=== PATIENT | male | born 1955 | race Caucasian/White ===

== ENCOUNTER 2023-05-17 01:10 | Outpatient (CLI) | payer MEDICARE, SELFPAY ==
[2023-05-17 08:18] LABS: Abs Immature Grans 0.09 10^3/uL (0.0-0.06); Absolute Basophil Count 0.09 10^3/uL (0.0-0.2); Absolute Neutrophil Count 12.16 10^3/uL (1.2-6.7); Basophils % 0.6; Eosinophils % 1.3; HCT 36.7 % (40.0-50.0); HGB 11.7 g/dL (13.5-17.5); Immature Grans % 0.6; Lymphocytes % 12.5; MCH 29.1 pg (27.0-33.0); MCHC 31.9 % (32.0-36.0); MCV 91 fL (80-95); MPV 9.2 fL (8.0-11.0); Monocytes % 7.2; Neutrophils % 77.8; Platelet Count 408 10^3/uL (130-400); RBC 4.02 10^6/uL (4.36-5.78); RDW 12.8 % (11.8-14.1); RDW-SD 42.5 fL; WBC 15.63 10^3/uL (4.4-10.8)
[2023-05-17 08:20] LABS: Absolute Lymphocyte Count 1.95 10^3/uL (1.2-3.4); Absolute Monocyte Count 1.13 10^3/uL (0.1-0.8)
[2023-05-17 08:44] LABS: ALT 21 U/L (16-63); AST 14 U/L (15-37); Alkaline Phosphatase 74 U/L (46-116); Anion Gap 8.7 mmol/L (3-11); BUN 15 mg/dL (7-18); Bilirubin, Total 0.2 mg/dL (0.2-1.0); CO2 28.3 mmol/L (21.0-32.0); CREATININE 1.1 mg/dL (0.70-1.30); Calcium 9.2 mg/dL (8.5-10.1); Chloride 98 mmol/L (98-107); Estimated GFR 73.58 (mL/min/1.73m2); Glucose 173 mg/dL (74-106); Potassium 3.7 mmol/L (3.5-5.1); Sodium 135 mmol/L (136-145); TSH 4.55 uIU/mL (0.36-3.74); Total Protein 8.4 g/dL (6.4-8.2)
[2023-05-17 08:51] LABS: Albumin 3.3 g/dL (3.4-5.0); Magnesium 2.1 mg/dL (1.8-2.4)
== END 2023-05-17 01:11 | disposition home or self-care (01) ==
PROVIDERS: Visit Provider Internal Medicine Medical Oncology
DX: C34.11 Malignant neoplasm of upper lobe, right bronchus or lung (principal); C78.02 Secondary malignant neoplasm of left lung; Z79.899 Other long term (current) drug therapy
CPT/HCPCS: 36415; 80053; 83735; 84439; 84443; 85025

== ENCOUNTER 2023-06-07 03:19 | Outpatient (CLI) | payer MEDICARE, SELFPAY ==
[2023-06-07 09:27] LABS: Abs Immature Grans 0.06 10^3/uL (0.0-0.06); Absolute Basophil Count 0.09 10^3/uL (0.0-0.2); Absolute Eosinophil Count 0.29 10^3/uL (0.0-0.7); Absolute Lymphocyte Count 2.56 10^3/uL (1.2-3.4); Absolute Monocyte Count 1.02 10^3/uL (0.1-0.8); Absolute Neutrophil Count 4.99 10^3/uL (1.2-6.7); Eosinophils % 3.2; HCT 40.5 % (40.0-50.0); Immature Grans % 0.7; Lymphocytes % 28.4; MCH 29.5 pg (27.0-33.0); MCHC 32.1 % (32.0-36.0); MCV 92 fL (80-95); MPV 8.8 fL (8.0-11.0); Monocytes % 11.3; Neutrophils % 55.4; Nucleated RBC 0.2 % (0.0-0.3); Platelet Count 291 10^3/uL (130-400); RDW 14.4 % (11.8-14.1); RDW-SD 46.7 fL; WBC 9.01 10^3/uL (4.4-10.8)
[2023-06-07 09:50] LABS: ALT 59 U/L (16-63); AST 27 U/L (15-37); Albumin 3.5 g/dL (3.4-5.0); Alkaline Phosphatase 72 U/L (46-116); Anion Gap 8.4 mmol/L (3-11); BUN 18 mg/dL (7-18); Bilirubin, Total 0.2 mg/dL (0.2-1.0); CO2 31.6 mmol/L (21.0-32.0); Calcium 9.3 mg/dL (8.5-10.1); Chloride 101 mmol/L (98-107); Estimated GFR 82.49 (mL/min/1.73m2); FREE T4 0.84 ng/dL (0.76-1.46); Glucose 92 mg/dL (74-106); Magnesium 2.1 mg/dL (1.8-2.4); Potassium 3.7 mmol/L (3.5-5.1); Sodium 141 mmol/L (136-145); TSH 3.98 uIU/mL (0.36-3.74); Total Protein 8.2 g/dL (6.4-8.2)
== END 2023-06-07 03:20 | disposition home or self-care (01) ==
LOC: LBO 03:20
PROVIDERS: Visit Provider Internal Medicine Medical Oncology
DX: Z79.899 Other long term (current) drug therapy (principal); C34.11 Malignant neoplasm of upper lobe, right bronchus or lung
CPT/HCPCS: 36415; 80053; 83735; 84439; 84443; 85025

== ENCOUNTER 2023-06-28 02:51 | Outpatient (CLI) | payer MEDICARE, SELFPAY ==
[2023-06-28 09:05] LABS: Abs Immature Grans 0.06 10^3/uL (0.0-0.06); Absolute Basophil Count 0.06 10^3/uL (0.0-0.2); Absolute Eosinophil Count 0.26 10^3/uL (0.0-0.7); Absolute Lymphocyte Count 2.43 10^3/uL (1.2-3.4); Absolute Monocyte Count 1.11 10^3/uL (0.1-0.8); Absolute Neutrophil Count 3.64 10^3/uL (1.2-6.7); Basophils % 0.8; Eosinophils % 3.4; HCT 37.6 % (40.0-50.0); HGB 12.3 g/dL (13.5-17.5); Immature Grans % 0.8; Lymphocytes % 32.1; MCH 30.3 pg (27.0-33.0); MCHC 32.7 % (32.0-36.0); MCV 93 fL (80-95); Monocytes % 14.7; Neutrophils % 48.2; Nucleated RBC 0.3 % (0.0-0.3); Platelet Count 242 10^3/uL (130-400); RBC 4.06 10^6/uL (4.36-5.78); RDW 16.4 % (11.8-14.1); RDW-SD 49.8 fL; WBC 7.56 10^3/uL (4.4-10.8)
[2023-06-28 09:36] LABS: ALT 45 U/L (16-63); AST 21 U/L (15-37); Albumin 3.5 g/dL (3.4-5.0); Alkaline Phosphatase 62 U/L (46-116); BUN 25 mg/dL (7-18); Bilirubin, Total 0.3 mg/dL (0.2-1.0); CREATININE 1.1 mg/dL (0.70-1.30); Calcium 8.9 mg/dL (8.5-10.1); Chloride 105 mmol/L (98-107); Estimated GFR 73.58 (mL/min/1.73m2); Glucose 117 mg/dL (74-106); Magnesium 2.1 mg/dL (1.8-2.4); Potassium 4.3 mmol/L (3.5-5.1); Sodium 143 mmol/L (136-145); TSH 3.62 uIU/mL (0.36-3.74); Total Protein 7.6 g/dL (6.4-8.2)
== END 2023-06-28 02:52 | disposition home or self-care (01) ==
LOC: LBO 02:52
PROVIDERS: Visit Provider Internal Medicine Medical Oncology
DX: Z79.899 Other long term (current) drug therapy (principal); C34.11 Malignant neoplasm of upper lobe, right bronchus or lung
CPT/HCPCS: 36415; 80053; 83735; 84439; 84443; 85025

== ENCOUNTER 2023-07-19 04:18 | Outpatient (CLI) | payer MEDICARE, SELFPAY ==
[2023-07-19 11:14] LABS: Abs Immature Grans 0.05 10^3/uL (0.0-0.06); Absolute Basophil Count 0.09 10^3/uL (0.0-0.2); Absolute Eosinophil Count 0.34 10^3/uL (0.0-0.7); Absolute Lymphocyte Count 3.09 10^3/uL (1.2-3.4); Absolute Monocyte Count 0.85 10^3/uL (0.1-0.8); Absolute Neutrophil Count 5.16 10^3/uL (1.2-6.7); Basophils % 0.9; Eosinophils % 3.5; Immature Grans % 0.5; Lymphocytes % 32.3; MCH 31.3 pg (27.0-33.0); MCHC 33.3 % (32.0-36.0); MCV 94 fL (80-95); MPV 9.7 fL (8.0-11.0); Monocytes % 8.9; Neutrophils % 53.9; Platelet Count 263 10^3/uL (130-400); RBC 4.15 10^6/uL (4.36-5.78); RDW 17.5 % (11.8-14.1); RDW-SD 59.6 fL; WBC 9.58 10^3/uL (4.4-10.8)
[2023-07-19 11:37] LABS: ALT 46 U/L (16-63); AST 25 U/L (15-37); Albumin 3.8 g/dL (3.4-5.0); Alkaline Phosphatase 61 U/L (46-116); Anion Gap 5.5 mmol/L (3-11); BUN 26 mg/dL (7-18); Bilirubin, Total 0.4 mg/dL (0.2-1.0); CO2 32.5 mmol/L (21.0-32.0); CREATININE 1.2 mg/dL (0.70-1.30); Calcium 9.4 mg/dL (8.5-10.1); Chloride 103 mmol/L (98-107); Estimated GFR 66.28 (mL/min/1.73m2); Glucose 105 mg/dL (74-106); Magnesium 2.1 mg/dL (1.8-2.4); Potassium 4.2 mmol/L (3.5-5.1); Sodium 141 mmol/L (136-145); TSH 4.93 uIU/mL (0.36-3.74); Total Protein 7.8 g/dL (6.4-8.2)
== END 2023-07-19 04:19 | disposition home or self-care (01) ==
LOC: LBO 04:18
PROVIDERS: Visit Provider Internal Medicine Medical Oncology
DX: Z79.899 Other long term (current) drug therapy (principal); C34.11 Malignant neoplasm of upper lobe, right bronchus or lung
CPT/HCPCS: 36415; 80053; 83735; 84439; 84443; 85025

== ENCOUNTER 2023-08-09 03:57 | Outpatient (CLI) | payer MEDICARE, SELFPAY ==
[2023-08-09 10:15] LABS: Abs Immature Grans 0.03 10^3/uL (0.0-0.06); Absolute Basophil Count 0.08 10^3/uL (0.0-0.2); Absolute Eosinophil Count 0.36 10^3/uL (0.0-0.7); Absolute Lymphocyte Count 2.84 10^3/uL (1.2-3.4); Absolute Monocyte Count 1.02 10^3/uL (0.1-0.8); Absolute Neutrophil Count 4.83 10^3/uL (1.2-6.7); Basophils % 0.9; Eosinophils % 3.9; HCT 39.8 % (40.0-50.0); HGB 13.4 g/dL (13.5-17.5); Immature Grans % 0.3; MCH 31.8 pg (27.0-33.0); MCHC 33.7 % (32.0-36.0); MCV 94 fL (80-95); MPV 9.3 fL (8.0-11.0); Monocytes % 11.1; Neutrophils % 52.8; Platelet Count 261 10^3/uL (130-400); RBC 4.22 10^6/uL (4.36-5.78); RDW 16.7 % (11.8-14.1); RDW-SD 57.5 fL; WBC 9.16 10^3/uL (4.4-10.8)
[2023-08-09 10:39] LABS: ALT 37 U/L (16-63); AST 21 U/L (15-37); Albumin 3.9 g/dL (3.4-5.0); Alkaline Phosphatase 59 U/L (46-116); Anion Gap 8.8 mmol/L (3-11); BUN 26 mg/dL (7-18); Bilirubin, Total 0.3 mg/dL (0.2-1.0); CO2 30.2 mmol/L (21.0-32.0); Calcium 9.4 mg/dL (8.5-10.1); Chloride 101 mmol/L (98-107); Estimated GFR 82.49 (mL/min/1.73m2); FREE T4 0.81 ng/dL (0.76-1.46); Glucose 125 mg/dL (74-106); Magnesium 2.2 mg/dL (1.8-2.4); Potassium 3.9 mmol/L (3.5-5.1); Sodium 140 mmol/L (136-145); TSH 4.75 uIU/mL (0.36-3.74)
== END 2023-08-09 03:58 | disposition home or self-care (01) ==
LOC: LBO 03:57
PROVIDERS: Visit Provider Internal Medicine Medical Oncology
DX: C34.11 Malignant neoplasm of upper lobe, right bronchus or lung (principal); C78.02 Secondary malignant neoplasm of left lung; Z79.899 Other long term (current) drug therapy
CPT/HCPCS: 36415; 80053; 83735; 84439; 84443; 85025

== ENCOUNTER 2023-08-30 05:03 | Outpatient (CLI) | payer MEDICARE, SELFPAY ==
[2023-08-30 09:39] LABS: Abs Immature Grans 0.07 10^3/uL (0.0-0.06); Absolute Basophil Count 0.09 10^3/uL (0.0-0.2); Absolute Eosinophil Count 0.36 10^3/uL (0.0-0.7); Absolute Lymphocyte Count 3.14 10^3/uL (1.2-3.4); Absolute Monocyte Count 0.99 10^3/uL (0.1-0.8); Absolute Neutrophil Count 6.01 10^3/uL (1.2-6.7); Basophils % 0.8; Eosinophils % 3.4; HGB 13.5 g/dL (13.5-17.5); Immature Grans % 0.7; Lymphocytes % 29.5; MCH 31.4 pg (27.0-33.0); MCHC 32.9 % (32.0-36.0); MCV 95 fL (80-95); MPV 9.5 fL (8.0-11.0); Monocytes % 9.3; Neutrophils % 56.3; Platelet Count 250 10^3/uL (130-400); RDW 14.9 % (11.8-14.1); RDW-SD 52.8 fL; WBC 10.66 10^3/uL (4.4-10.8)
[2023-08-30 10:05] LABS: ALT 34 U/L (16-63); AST 22 U/L (15-37); Albumin 3.7 g/dL (3.4-5.0); Alkaline Phosphatase 63 U/L (46-116); Anion Gap 6.5 mmol/L (3-11); BUN 18 mg/dL (7-18); Bilirubin, Total 0.5 mg/dL (0.2-1.0); CO2 32.5 mmol/L (21.0-32.0); CREATININE 1.2 mg/dL (0.70-1.30); Calcium 9.1 mg/dL (8.5-10.1); Chloride 102 mmol/L (98-107); Estimated GFR 66.28 (mL/min/1.73m2); Glucose 101 mg/dL (74-106); Magnesium 2.2 mg/dL (1.8-2.4); Potassium 3.9 mmol/L (3.5-5.1); Sodium 141 mmol/L (136-145); TSH 5.04 uIU/mL (0.36-3.74); Total Protein 7.8 g/dL (6.4-8.2)
== END 2023-08-30 05:04 | disposition home or self-care (01) ==
LOC: LBO 05:03
PROVIDERS: Visit Provider Internal Medicine Medical Oncology
DX: Z79.899 Other long term (current) drug therapy (principal); C78.02 Secondary malignant neoplasm of left lung; C34.11 Malignant neoplasm of upper lobe, right bronchus or lung
CPT/HCPCS: 36415; 80053; 83735; 84439; 84443; 85025

== ENCOUNTER 2023-09-20 03:20 | Outpatient (CLI) | payer MEDICARE, SELFPAY ==
[2023-09-20 12:12] LABS: Abs Immature Grans 0.06 10^3/uL (0.0-0.06); Absolute Lymphocyte Count 2.81 10^3/uL (1.2-3.4); Absolute Monocyte Count 1.19 10^3/uL (0.1-0.8); Basophils % 0.9; Eosinophils % 2.7; HCT 40.6 % (40.0-50.0); HGB 13.7 g/dL (13.5-17.5); Immature Grans % 0.5; Lymphocytes % 24.1; MCH 32.2 pg (27.0-33.0); MCHC 33.7 % (32.0-36.0); MCV 96 fL (80-95); MPV 9.5 fL (8.0-11.0); Monocytes % 10.2; Neutrophils % 61.6; Platelet Count 265 10^3/uL (130-400); RBC 4.25 10^6/uL (4.36-5.78); RDW 13.5 % (11.8-14.1); WBC 11.65 10^3/uL (4.4-10.8)
[2023-09-20 12:14] LABS: Absolute Eosinophil Count 0.31 10^3/uL (0.0-0.7); Absolute Neutrophil Count 7.18 10^3/uL (1.2-6.7)
[2023-09-20 12:40] LABS: ALT 31 U/L (16-63); AST 18 U/L (15-37); Albumin 3.7 g/dL (3.4-5.0); Alkaline Phosphatase 66 U/L (46-116); Anion Gap 13.9 mmol/L (3-11); BUN 18 mg/dL (7-18); Bilirubin, Total 0.3 mg/dL (0.2-1.0); CO2 31.1 mmol/L (21.0-32.0); CREATININE 1.1 mg/dL (0.70-1.30); Calcium 9.1 mg/dL (8.5-10.1); Chloride 102 mmol/L (98-107); Estimated GFR 73.12 (mL/min/1.73m2); FREE T4 0.87 ng/dL (0.76-1.46); Glucose 103 mg/dL (74-106); Magnesium 2.2 mg/dL (1.8-2.4); Potassium 4.2 mmol/L (3.5-5.1); Sodium 147 mmol/L (136-145); TSH 4.86 uIU/Ml (0.36-3.74)
== END 2023-09-20 03:21 | disposition home or self-care (01) ==
LOC: LBO 03:20
PROVIDERS: Visit Provider Internal Medicine Medical Oncology
DX: Z79.899 Other long term (current) drug therapy (principal)
CPT/HCPCS: 36415; 80053; 83735; 84439; 84443; 85025

== ENCOUNTER 2023-10-11 05:53 | Outpatient (CLI) | payer MEDICARE, SELFPAY ==
[2023-10-11 10:02] LABS: Abs Immature Grans 0.05 10^3/uL (0.0-0.06); Absolute Eosinophil Count 0.29 10^3/uL (0.0-0.7); Absolute Lymphocyte Count 3.02 10^3/uL (1.2-3.4); Absolute Monocyte Count 0.76 10^3/uL (0.1-0.8); Absolute Neutrophil Count 6.03 10^3/uL (1.2-6.7); Eosinophils % 2.8; HCT 41.5 % (40.0-50.0); HGB 13.7 g/dL (13.5-17.5); Immature Grans % 0.5; Lymphocytes % 29.5; MCH 31.9 pg (27.0-33.0); MCV 97 fL (80-95); MPV 9.7 fL (8.0-11.0); Monocytes % 7.4; Neutrophils % 58.8; Platelet Count 266 10^3/uL (130-400); RDW 12.3 % (11.8-14.1); RDW-SD 43.9 fL; WBC 10.25 10^3/uL (4.4-10.8)
[2023-10-11 10:31] LABS: ALT 31 U/L (16-63); AST 21 U/L (15-37); Albumin 3.7 g/dL (3.4-5.0); Alkaline Phosphatase 65 U/L (46-116); BUN 22 mg/dL (7-18); Bilirubin, Total 0.4 mg/dL (0.2-1.0); CREATININE 1.1 mg/dL (0.70-1.30); Calcium 9.1 mg/dL (8.5-10.1); Chloride 103 mmol/L (98-107); Estimated GFR 73.12 (mL/min/1.73m2); FREE T4 0.87 ng/dL (0.76-1.46); Glucose 122 mg/dL (74-106); Magnesium 2.1 mg/dL (1.8-2.4); Potassium 4.3 mmol/L (3.5-5.1); Sodium 141 mmol/L (136-145); TSH 4.73 uIU/Ml (0.36-3.74); Total Protein 7.8 g/dL (6.4-8.2)
== END 2023-10-11 05:54 | disposition home or self-care (01) ==
LOC: LBO 05:54
PROVIDERS: Visit Provider Internal Medicine Medical Oncology
DX: Z79.899 Other long term (current) drug therapy (principal); C34.11 Malignant neoplasm of upper lobe, right bronchus or lung
CPT/HCPCS: 36415; 80053; 83735; 84439; 84443; 85025

== ENCOUNTER 2023-11-01 05:06 | Outpatient (CLI) | payer MEDICARE, SELFPAY ==
[2023-11-01 08:27] LABS: Abs Immature Grans 0.04 10^3/uL (0.0-0.06); Absolute Basophil Count 0.09 10^3/uL (0.0-0.2); Absolute Eosinophil Count 0.34 10^3/uL (0.0-0.7); Absolute Lymphocyte Count 2.43 10^3/uL (1.2-3.4); Absolute Monocyte Count 0.84 10^3/uL (0.1-0.8); Basophils % 0.9; Eosinophils % 3.5; HCT 40.8 % (40.0-50.0); HGB 13.5 g/dL (13.5-17.5); Immature Grans % 0.4; Lymphocytes % 25.2; MCH 31.9 pg (27.0-33.0); MCHC 33.1 % (32.0-36.0); MCV 97 fL (80-95); MPV 9.8 fL (8.0-11.0); Monocytes % 8.7; Neutrophils % 61.3; Platelet Count 275 10^3/uL (130-400); RBC 4.23 10^6/uL (4.36-5.78); RDW 12.4 % (11.8-14.1); RDW-SD 44.1 fL; WBC 9.64 10^3/uL (4.4-10.8)
[2023-11-01 08:51] LABS: ALT 30 U/L (16-63); AST 21 U/L (15-37); Albumin 3.6 g/dL (3.4-5.0); Alkaline Phosphatase 66 U/L (46-116); Anion Gap 8.5 mmol/L (3-11); BUN 27 mg/dL (7-18); Bilirubin, Total 0.3 mg/dL (0.2-1.0); CO2 29.5 mmol/L (21.0-32.0); CREATININE 1.2 mg/dL (0.70-1.30); Calcium 9.2 mg/dL (8.5-10.1); Chloride 105 mmol/L (98-107); Estimated GFR 65.87 (mL/min/1.73m2); FREE T4 0.84 ng/dL (0.76-1.46); Glucose 100 mg/dL (74-106); Magnesium 2.3 mg/dL (1.8-2.4); Potassium 4.2 mmol/L (3.5-5.1); Sodium 143 mmol/L (136-145); TSH 4.98 uIU/Ml (0.36-3.74); Total Protein 7.6 g/dL (6.4-8.2)
== END 2023-11-01 05:07 | disposition home or self-care (01) ==
LOC: LBO 05:06
PROVIDERS: Visit Provider Internal Medicine Medical Oncology
DX: Z79.899 Other long term (current) drug therapy (principal); C34.11 Malignant neoplasm of upper lobe, right bronchus or lung; C78.02 Secondary malignant neoplasm of left lung
CPT/HCPCS: 36415; 80053; 83735; 84439; 84443; 85025

== ENCOUNTER 2023-11-22 13:33 | Outpatient (CLI) | payer MEDICARE, SELFPAY ==
[2023-11-22 10:22] LABS: Abs Immature Grans 0.05 10^3/uL (0.0-0.06); Absolute Basophil Count 0.09 10^3/uL (0.0-0.2); Absolute Eosinophil Count 0.26 10^3/uL (0.0-0.7); Absolute Lymphocyte Count 2.52 10^3/uL (1.2-3.4); Absolute Monocyte Count 0.81 10^3/uL (0.1-0.8); Absolute Neutrophil Count 5.39 10^3/uL (1.2-6.7); Eosinophils % 2.9 %; HCT 42.1 % (40.0-50.0); HGB 13.9 g/dL (13.5-17.5); Immature Grans % 0.5 %; Lymphocytes % 27.6 %; MCH 31.4 pg (27.0-33.0); MCV 95 fL (80-95); MPV 9.6 fL (8.0-11.0); Monocytes % 8.9 %; Neutrophils % 59.1 %; Platelet Count 302 10^3/uL (130-400); RBC 4.42 10^6/uL (4.36-5.78); RDW 12.5 % (11.8-14.1); RDW-SD 44.1 fL; WBC 9.12 10^3/uL (4.4-10.8)
[2023-11-22 10:45] LABS: ALT 30 U/L (16-63); AST 19 U/L (15-37); Albumin 3.6 g/dL (3.4-5.0); Alkaline Phosphatase 65 U/L (46-116); Anion Gap 10.1 mmol/L (3-11); BUN 31 mg/dL (7-18); Bilirubin, Total 0.3 mg/dL (0.2-1.0); CO2 28.9 mmol/L (21.0-32.0); CREATININE 1.1 mg/dL (0.70-1.30); Calcium 9.1 mg/dL (8.5-10.1); Chloride 103 mmol/L (98-107); Estimated GFR 73.12 (mL/min/1.73m2); FREE T4 0.86 ng/dL (0.76-1.46); Glucose 108 mg/dL (74-106); Magnesium 2.2 mg/dL (1.8-2.4); Potassium 4.3 mmol/L (3.5-5.1); Sodium 142 mmol/L (136-145); TSH 4.14 uIU/Ml (0.36-3.74); Total Protein 7.7 g/dL (6.4-8.2)
== END 2023-11-22 13:34 | disposition home or self-care (01) ==
LOC: LBO 13:33
PROVIDERS: Visit Provider Internal Medicine Medical Oncology
DX: Z79.899 Other long term (current) drug therapy (principal); C34.11 Malignant neoplasm of upper lobe, right bronchus or lung
CPT/HCPCS: 36415; 80053; 83735; 84439; 84443; 85025

== ENCOUNTER 2023-12-13 04:40 | Outpatient (CLI) | payer MEDICARE, SELFPAY ==
[2023-12-13 10:08] LABS: Abs Immature Grans 0.05 10^3/uL (0.0-0.06); Absolute Basophil Count 0.09 10^3/uL (0.0-0.2); Absolute Lymphocyte Count 2.36 10^3/uL (1.2-3.4); Absolute Monocyte Count 0.87 10^3/uL (0.1-0.8); Absolute Neutrophil Count 6.37 10^3/uL (1.2-6.7); Basophils % 0.9 %; HCT 40.3 % (40.0-50.0); HGB 13.6 g/dL (13.5-17.5); Immature Grans % 0.5 %; Lymphocytes % 23.5 %; MCH 31.1 pg (27.0-33.0); MCHC 33.7 % (32.0-36.0); MCV 92 fL (80-95); MPV 9.9 fL (8.0-11.0); Monocytes % 8.7 %; Neutrophils % 63.4 %; Platelet Count 280 10^3/uL (130-400); RBC 4.38 10^6/uL (4.36-5.78); RDW 12.7 % (11.8-14.1); RDW-SD 42.8 fL; WBC 10.04 10^3/uL (4.4-10.8)
[2023-12-13 10:35] LABS: ALT 26 U/L (16-63); AST 17 U/L (15-37); Albumin 3.6 g/dL (3.4-5.0); Alkaline Phosphatase 64 U/L (46-116); BUN 24 mg/dL (7-18); Bilirubin, Total 0.3 mg/dL (0.2-1.0); Chloride 102 mmol/L (98-107); Estimated GFR 81.98 (mL/min/1.73m2); FREE T4 0.79 ng/dL (0.76-1.46); Glucose 127 mg/dL (74-106); Potassium 4.1 mmol/L (3.5-5.1); Sodium 140 mmol/L (136-145); Total Protein 7.7 g/dL (6.4-8.2)
== END 2023-12-13 04:41 | disposition home or self-care (01) ==
LOC: LBO 04:40
PROVIDERS: Visit Provider Internal Medicine Medical Oncology
DX: C34.11 Malignant neoplasm of upper lobe, right bronchus or lung (principal); C78.02 Secondary malignant neoplasm of left lung; Z79.899 Other long term (current) drug therapy
CPT/HCPCS: 36415; 80053; 83735; 84439; 84443; 85025

== ENCOUNTER 2024-01-03 15:42 | Outpatient (REF) | payer MEDICARE, SELFPAY ==
[2024-01-03 12:05] LABS: Abs Immature Grans 0.05 10^3/uL (0.0-0.06); Absolute Eosinophil Count 0.27 10^3/uL (0.0-0.7); Absolute Lymphocyte Count 2.16 10^3/uL (1.2-3.4); Absolute Monocyte Count 0.96 10^3/uL (0.1-0.8); Eosinophils % 2.7 %; HCT 40.2 % (40.0-50.0); HGB 13.4 g/dL (13.5-17.5); Immature Grans % 0.5 %; Lymphocytes % 21.3 %; MCH 31.1 pg (27.0-33.0); MCHC 33.3 % (32.0-36.0); MCV 93 fL (80-95); MPV 10.5 fL (8.0-11.0); Monocytes % 9.5 %; Platelet Count 306 10^3/uL (130-400); RBC 4.31 10^6/uL (4.36-5.78); RDW 13.2 % (11.8-14.1); RDW-SD 45.5 fL; WBC 10.14 10^3/uL (4.4-10.8)
[2024-01-03 12:36] LABS: ALT 25 U/L (16-63); AST 22 U/L (15-37); Albumin 3.6 g/dL (3.4-5.0); Alkaline Phosphatase 69 U/L (46-116); Anion Gap 7.7 mmol/L (3-11); BUN 21 mg/dL (7-18); Bilirubin, Total 0.34 mg/dL (0.2-1.0); CO2 30.3 mmol/L (21.0-32.0); CREATININE 1.1 mg/dL (0.70-1.30); Calcium 8.8 mg/dL (8.5-10.1); Chloride 104 mmol/L (98-107); Estimated GFR 73.12 (mL/min/1.73m2); FREE T4 0.89 ng/dL (0.76-1.46); Glucose 114 mg/dL (74-106); Magnesium 1.9 mg/dL (1.8-2.4); Potassium 4.3 mmol/L (3.5-5.1); Sodium 142 mmol/L (136-145); TSH 4.77 uIU/Ml (0.36-3.74); Total Protein 7.8 g/dL (6.4-8.2)
== END 2024-01-03 15:43 | disposition home or self-care (01) ==
LOC: LBN 15:42
PROVIDERS: Visit Provider Internal Medicine Medical Oncology
DX: C34.11 Malignant neoplasm of upper lobe, right bronchus or lung (principal); C78.02 Secondary malignant neoplasm of left lung; Z79.899 Other long term (current) drug therapy
CPT/HCPCS: 80053; 83735; 84439; 84443; 85025

== ENCOUNTER 2024-01-24 03:55 | Outpatient (CLI) | payer MEDICARE, SELFPAY ==
[2024-01-24 13:31] LABS: Abs Immature Grans 0.08 10^3/uL (0.0-0.06); Absolute Eosinophil Count 0.36 10^3/uL (0.0-0.7); Absolute Lymphocyte Count 2.69 10^3/uL (1.2-3.4); Basophils % 0.9 %; Eosinophils % 3.1 %; HGB 13.5 g/dL (13.5-17.5); Immature Grans % 0.7 %; Lymphocytes % 23.1 %; MCH 30.8 pg (27.0-33.0); MCHC 32.9 % (32.0-36.0); MCV 94 fL (80-95); MPV 9.7 fL (8.0-11.0); Monocytes % 5.7 %; Neutrophils % 66.5 %; Platelet Count 300 10^3/uL (130-400); RBC 4.38 10^6/uL (4.36-5.78); RDW 13.2 % (11.8-14.1); RDW-SD 45.1 fL; WBC 11.66 10^3/uL (4.4-10.8)
[2024-01-24 13:32] LABS: Absolute Monocyte Count 0.66 10^3/uL (0.1-0.8); Absolute Neutrophil Count 7.75 10^3/uL (1.2-6.7)
[2024-01-24 13:56] LABS: ALT 25 U/L (16-63); AST 16 U/L (15-37); Albumin 3.6 g/dL (3.4-5.0); Alkaline Phosphatase 69 U/L (46-116); Anion Gap 9.2 mmol/L (3-11); BUN 20 mg/dL (7-18); Bilirubin, Total 0.27 mg/dL (0.2-1.0); CO2 27.8 mmol/L (21.0-32.0); CREATININE 1.1 mg/dL (0.70-1.30); Calcium 8.9 mg/dL (8.5-10.1); Chloride 101 mmol/L (98-107); Estimated GFR 73.12 (mL/min/1.73m2); FREE T4 0.92 ng/dL (0.76-1.46); Glucose 159 mg/dL (74-106); Magnesium 1.9 mg/dL (1.8-2.4); Sodium 138 mmol/L (136-145); TSH 5.17 uIU/Ml (0.36-3.74); Total Protein 7.8 g/dL (6.4-8.2)
== END 2024-01-24 03:56 | disposition home or self-care (01) ==
PROVIDERS: Visit Provider Internal Medicine Medical Oncology
DX: Z79.899 Other long term (current) drug therapy (principal); C34.11 Malignant neoplasm of upper lobe, right bronchus or lung; C78.02 Secondary malignant neoplasm of left lung
CPT/HCPCS: 36415; 80053; 83735; 84439; 84443; 85025

== ENCOUNTER 2024-02-14 03:33 | Outpatient (CLI) | payer MEDICARE, SELFPAY ==
[2024-02-14 10:21] LABS: Abs Immature Grans 0.07 10^3/uL (0.0-0.06); Absolute Basophil Count 0.11 10^3/uL (0.0-0.2); Absolute Eosinophil Count 0.36 10^3/uL (0.0-0.7); Absolute Lymphocyte Count 2.67 10^3/uL (1.2-3.4); Absolute Monocyte Count 1.13 10^3/uL (0.1-0.8); Basophils % 0.9 %; HCT 41.5 % (40.0-50.0); HGB 13.6 g/dL (13.5-17.5); Immature Grans % 0.6 %; Lymphocytes % 22.4 %; MCH 31.1 pg (27.0-33.0); MCHC 32.8 % (32.0-36.0); MCV 95 fL (80-95); MPV 9.4 fL (8.0-11.0); Monocytes % 9.5 %; Neutrophils % 63.6 %; Platelet Count 287 10^3/uL (130-400); RBC 4.38 10^6/uL (4.36-5.78); RDW 13.3 % (11.8-14.1); RDW-SD 46.4 fL; WBC 11.94 10^3/uL (4.4-10.8)
[2024-02-14 10:22] LABS: Absolute Neutrophil Count 7.59 10^3/uL (1.2-6.7)
[2024-02-14 10:47] LABS: ALT 24 U/L (16-63); AST 16 U/L (15-37); Albumin 3.6 g/dL (3.4-5.0); Alkaline Phosphatase 68 U/L (46-116); Anion Gap 6.8 mmol/L (3-11); BUN 23 mg/dL (7-18); Bilirubin, Total 0.19 mg/dL (0.2-1.0); CO2 31.2 mmol/L (21.0-32.0); CREATININE 1.2 mg/dL (0.70-1.30); Calcium 9.3 mg/dL (8.5-10.1); Chloride 103 mmol/L (98-107); Estimated GFR 65.87 (mL/min/1.73m2); FREE T4 0.85 ng/dL (0.76-1.46); Glucose 105 mg/dL (74-106); Magnesium 2.1 mg/dL (1.8-2.4); Potassium 4.4 mmol/L (3.5-5.1); Sodium 141 mmol/L (136-145); TSH 4.91 uIU/Ml (0.36-3.74); Total Protein 7.8 g/dL (6.4-8.2)
== END 2024-02-14 03:34 | disposition home or self-care (01) ==
LOC: LBO 03:33
PROVIDERS: Visit Provider Internal Medicine Medical Oncology
DX: Z79.899 Other long term (current) drug therapy (principal); C34.11 Malignant neoplasm of upper lobe, right bronchus or lung
CPT/HCPCS: 36415; 80053; 83735; 84439; 84443; 85025

== ENCOUNTER 2024-03-06 03:06 | Outpatient (CLI) | payer MEDICARE, SELFPAY ==
[2024-03-06 12:55] LABS: Abs Immature Grans 0.08 10^3/uL (0.0-0.06); Absolute Basophil Count 0.09 10^3/uL (0.0-0.2); Absolute Lymphocyte Count 3.04 10^3/uL (1.2-3.4); Absolute Monocyte Count 1.08 10^3/uL (0.1-0.8); Absolute Neutrophil Count 8.51 10^3/uL (1.2-6.7); Basophils % 0.7 %; HCT 40.7 % (40.0-50.0); HGB 13.7 g/dL (13.5-17.5); Immature Grans % 0.6 %; MCH 31.1 pg (27.0-33.0); MCHC 33.7 % (32.0-36.0); MCV 93 fL (80-95); MPV 9.7 fL (8.0-11.0); Monocytes % 8.2 %; Neutrophils % 64.5 %; Platelet Count 316 10^3/uL (130-400); RDW 13.2 % (11.8-14.1)
[2024-03-06 13:23] LABS: ALT 22 U/L (16-63); AST 18 U/L (15-37); Albumin 3.7 g/dL (3.4-5.0); Alkaline Phosphatase 72 U/L (46-116); Anion Gap 7.9 mmol/L (3-11); BUN 23 mg/dL (7-18); Bilirubin, Total 0.21 mg/dL (0.2-1.0); CO2 29.1 mmol/L (21.0-32.0); Calcium 9.2 mg/dL (8.5-10.1); Chloride 101 mmol/L (98-107); Estimated GFR 81.98 (mL/min/1.73m2); FREE T4 0.87 ng/dL (0.76-1.46); Glucose 103 mg/dL (74-106); Potassium 3.9 mmol/L (3.5-5.1); Sodium 138 mmol/L (136-145); TSH 5.93 uIU/Ml (0.36-3.74); Total Protein 8.1 g/dL (6.4-8.2)
== END 2024-03-06 03:07 | disposition home or self-care (01) ==
LOC: LBO 03:06
PROVIDERS: Visit Provider Internal Medicine Medical Oncology
DX: Z79.899 Other long term (current) drug therapy (principal); C34.11 Malignant neoplasm of upper lobe, right bronchus or lung; C78.02 Secondary malignant neoplasm of left lung
CPT/HCPCS: 36415; 80053; 83735; 84439; 84443; 85025

== ENCOUNTER 2024-03-27 04:22 | Outpatient (CLI) | payer MEDICARE, SELFPAY ==
[2024-03-27 08:48] LABS: Abs Immature Grans 0.06 10^3/uL (0.0-0.06); Absolute Eosinophil Count 0.33 10^3/uL (0.0-0.7); Absolute Lymphocyte Count 2.19 10^3/uL (1.2-3.4); Absolute Monocyte Count 0.83 10^3/uL (0.1-0.8); Basophils % 0.9 %; HCT 40.2 % (40.0-50.0); HGB 13.3 g/dL (13.5-17.5); Immature Grans % 0.5 %; Lymphocytes % 19.7 %; MCH 30.8 pg (27.0-33.0); MCHC 33.1 % (32.0-36.0); MCV 93 fL (80-95); MPV 9.7 fL (8.0-11.0); Monocytes % 7.5 %; Neutrophils % 68.4 %; Platelet Count 310 10^3/uL (130-400); RBC 4.32 10^6/uL (4.36-5.78); RDW 13.3 % (11.8-14.1); RDW-SD 45.4 fL; WBC 11.11 10^3/uL (4.4-10.8)
[2024-03-27 09:10] LABS: ALT 25 U/L (16-63); AST 17 U/L (15-37); Albumin 3.4 g/dL (3.4-5.0); Alkaline Phosphatase 67 U/L (46-116); Anion Gap 5.4 mmol/L (3-11); BUN 24 mg/dL (7-18); Bilirubin, Total 0.33 mg/dL (0.2-1.0); CO2 29.6 mmol/L (21.0-32.0); CREATININE 1.1 mg/dL (0.70-1.30); Calcium 9.4 mg/dL (8.5-10.1); Chloride 102 mmol/L (98-107); Estimated GFR 73.12 (mL/min/1.73m2); FREE T4 0.95 ng/dL (0.76-1.46); Glucose 148 mg/dL (74-106); Magnesium 2.1 mg/dL (1.8-2.4); Potassium 4.1 mmol/L (3.5-5.1); Sodium 137 mmol/L (136-145); Total Protein 7.6 g/dL (6.4-8.2)
== END 2024-03-27 04:23 | disposition home or self-care (01) ==
LOC: LBO 04:22
PROVIDERS: Visit Provider Internal Medicine Medical Oncology
DX: Z79.899 Other long term (current) drug therapy (principal)
CPT/HCPCS: 36415; 80053; 83735; 84439; 84443; 85025

== ENCOUNTER 2024-04-17 02:24 | Outpatient (CLI) | payer MEDICARE, SELFPAY ==
[2024-04-17 09:40] LABS: Abs Immature Grans 0.06 10^3/uL (0.0-0.06); Absolute Basophil Count 0.11 10^3/uL (0.0-0.2); Absolute Lymphocyte Count 2.17 10^3/uL (1.2-3.4); Absolute Monocyte Count 0.69 10^3/uL (0.1-0.8); Eosinophils % 2.7 %; HCT 41.9 % (40.0-50.0); HGB 13.5 g/dL (13.5-17.5); Immature Grans % 0.5 %; Lymphocytes % 19.3 %; MCH 30.7 pg (27.0-33.0); MCHC 32.2 % (32.0-36.0); MCV 95 fL (80-95); MPV 9.7 fL (8.0-11.0); Monocytes % 6.1 %; Neutrophils % 70.4 %; Nucleated RBC 0.2 % (0.0-0.3); Platelet Count 343 10^3/uL (130-400); RDW 13.9 % (11.8-14.1); RDW-SD 48.3 fL; WBC 11.23 10^3/uL (4.4-10.8)
[2024-04-17 09:41] LABS: Absolute Neutrophil Count 7.91 10^3/uL (1.2-6.7)
[2024-04-17 10:10] LABS: ALT 24 U/L (16-63); AST 19 U/L (15-37); Albumin 3.4 g/dL (3.4-5.0); Alkaline Phosphatase 76 U/L (46-116); BUN 23 mg/dL (7-18); CO2 30.9 mmol/L (21.0-32.0); CREATININE 1.1 mg/dL (0.70-1.30); Calcium 9.2 mg/dL (8.5-10.1); Estimated GFR 73.12 (mL/min/1.73m2); FREE T4 1.03 ng/dL (0.76-1.46); Glucose 149 mg/dL (74-106); TSH 2.18 uIU/Ml (0.36-3.74); Total Protein 7.9 g/dL (6.4-8.2)
[2024-04-17 10:18] LABS: Anion Gap 9.1 mmol/L (3-11); Chloride 105 mmol/L (98-107); Potassium 3.9 mmol/L (3.5-5.1); Sodium 145 mmol/L (136-145)
== END 2024-04-17 02:25 | disposition home or self-care (01) ==
LOC: LBO 02:24
PROVIDERS: Visit Provider Internal Medicine Medical Oncology
DX: Z79.899 Other long term (current) drug therapy (principal); C34.92 Malignant neoplasm of unspecified part of left bronchus or lung; C34.11 Malignant neoplasm of upper lobe, right bronchus or lung; C78.02 Secondary malignant neoplasm of left lung
CPT/HCPCS: 36415; 80053; 83735; 84439; 84443; 85025

== ENCOUNTER 2024-05-08 02:05 | Outpatient (CLI) | payer MEDICARE, SELFPAY ==
[2024-05-08 12:54] LABS: FREE T4 0.99 ng/dL (0.76-1.46); TSH 3.35 uIU/mL (0.36-3.74)
[2024-05-08 13:56] LABS: ALT 21 U/L (16-63); AST 19 U/L (15-37); Albumin 3.4 g/dL (3.4-5.0); Alkaline Phosphatase 76 U/L (46-116); Anion Gap 9.9 mmol/L (3-11); BUN 18 mg/dL (7-18); Bilirubin, Total 0.25 mg/dL (0.2-1.0); CO2 29.1 mmol/L (21.0-32.0); CREATININE 1.2 mg/dL (0.70-1.30); Calcium 9.2 mg/dL (8.5-10.1); Chloride 106 mmol/L (98-107); Estimated GFR 65.87 (mL/min/1.73m2); Glucose 108 mg/dL (74-106); Magnesium 2.3 mg/dL (1.8-2.4); Potassium 4.2 mmol/L (3.5-5.1); Sodium 145 mmol/L (136-145); Total Protein 7.8 g/dL (6.4-8.2)
[2024-05-08 14:02] LABS: Abs Immature Grans 0.04 10^3/uL (0.0-0.06); Absolute Eosinophil Count 0.47 10^3/uL (0.0-0.7); Absolute Lymphocyte Count 2.41 10^3/uL (1.2-3.4); Absolute Monocyte Count 0.86 10^3/uL (0.1-0.8); Absolute Neutrophil Count 7.63 10^3/uL (1.2-6.7); Eosinophils % 4.1 %; HCT 42.3 % (40.0-50.0); HGB 13.7 g/dL (13.5-17.5); Immature Grans % 0.3 %; Lymphocytes % 20.9 %; MCH 30.5 pg (27.0-33.0); MCHC 32.4 % (32.0-36.0); MCV 94 fL (80-95); MPV 10.2 fL (8.0-11.0); Monocytes % 7.5 %; Neutrophils % 66.2 %; Platelet Count 355 10^3/uL (130-400); RBC 4.49 10^6/uL (4.36-5.78); RDW 14.2 % (11.8-14.1); RDW-SD 48.6 fL; WBC 11.52 10^3/uL (4.4-10.8)
[2024-05-08 14:04] LABS: Absolute Basophil Count 0.12 10^3/uL (0.0-0.2)
== END 2024-05-08 02:06 | disposition home or self-care (01) ==
LOC: LBO 02:05
PROVIDERS: Visit Provider Internal Medicine Medical Oncology
DX: Z79.899 Other long term (current) drug therapy (principal); C34.11 Malignant neoplasm of upper lobe, right bronchus or lung
CPT/HCPCS: 36415; 80053; 83735; 84439; 84443; 85025

== ENCOUNTER 2024-05-29 03:08 | Outpatient (CLI) | payer MEDICARE, SELFPAY ==
[2024-05-29 09:48] LABS: Abs Immature Grans 0.07 10^3/uL (0.0-0.06); Absolute Eosinophil Count 0.45 10^3/uL (0.0-0.7); Absolute Lymphocyte Count 2.24 10^3/uL (1.2-3.4); Absolute Monocyte Count 0.84 10^3/uL (0.1-0.8); Absolute Neutrophil Count 7.83 10^3/uL (1.2-6.7); Basophils % 0.9 %; Eosinophils % 3.9 %; HCT 42.6 % (40.0-50.0); HGB 13.7 g/dL (13.5-17.5); Immature Grans % 0.6 %; Lymphocytes % 19.4 %; MCH 30.1 pg (27.0-33.0); MCHC 32.2 % (32.0-36.0); MCV 94 fL (80-95); MPV 9.4 fL (8.0-11.0); Monocytes % 7.3 %; Neutrophils % 67.9 %; Platelet Count 307 10^3/uL (130-400); RBC 4.55 10^6/uL (4.36-5.78); RDW 13.2 % (11.8-14.1); RDW-SD 45.7 fL; WBC 11.53 10^3/uL (4.4-10.8)
[2024-05-29 10:13] LABS: ALT 19 U/L (16-63); AST 17 U/L (15-37); Albumin 3.4 g/dL (3.4-5.0); Alkaline Phosphatase 75 U/L (46-116); Anion Gap 7.4 mmol/L (3-11); BUN 19 mg/dL (7-18); Bilirubin, Total 0.38 mg/dL (0.2-1.0); CO2 30.6 mmol/L (21.0-32.0); Chloride 104 mmol/L (98-107); Estimated GFR 81.98 (mL/min/1.73m2); FREE T4 1.02 ng/dL (0.76-1.46); Glucose 149 mg/dL (74-106); Magnesium 2.1 mg/dL (1.8-2.4); Potassium 3.9 mmol/L (3.5-5.1); Sodium 142 mmol/L (136-145); TSH 2.48 uIU/mL (0.36-3.74); Total Protein 7.8 g/dL (6.4-8.2)
== END 2024-05-29 03:09 | disposition home or self-care (01) ==
PROVIDERS: Visit Provider Nurse Practitioner Family
DX: Z79.899 Other long term (current) drug therapy (principal); C34.11 Malignant neoplasm of upper lobe, right bronchus or lung
CPT/HCPCS: 36415; 80053; 83735; 84439; 84443; 85025

== ENCOUNTER 2024-06-19 02:14 | Outpatient (CLI) | payer MEDICARE, SELFPAY ==
[2024-06-19 09:42] LABS: Abs Immature Grans 0.03 10^3/uL (0.0-0.06); Absolute Eosinophil Count 0.39 10^3/uL (0.0-0.7); Absolute Lymphocyte Count 2.28 10^3/uL (1.2-3.4); Absolute Monocyte Count 0.87 10^3/uL (0.1-0.8); Absolute Neutrophil Count 7.34 10^3/uL (1.2-6.7); Basophils % 0.9 %; Eosinophils % 3.5 %; HCT 43.2 % (40.0-50.0); HGB 13.8 g/dL (13.5-17.5); Immature Grans % 0.3 %; Lymphocytes % 20.7 %; MCH 29.5 pg (27.0-33.0); MCHC 31.9 % (32.0-36.0); MCV 92 fL (80-95); MPV 9.4 fL (8.0-11.0); Monocytes % 7.9 %; Neutrophils % 66.7 %; Platelet Count 308 10^3/uL (130-400); RBC 4.68 10^6/uL (4.36-5.78); RDW 13.3 % (11.8-14.1); RDW-SD 45.1 fL; WBC 11.01 10^3/uL (4.4-10.8)
[2024-06-19 10:11] LABS: ALT 22 U/L (16-63); AST 18 U/L (15-37); Albumin 3.5 g/dL (3.4-5.0); Alkaline Phosphatase 82 U/L (46-116); Anion Gap 10.6 mmol/L (3-11); BUN 16 mg/dL (7-18); Bilirubin, Total 0.39 mg/dL (0.2-1.0); CO2 29.4 mmol/L (21.0-32.0); Chloride 103 mmol/L (98-107); Estimated GFR 81.98 (mL/min/1.73m2); FREE T4 1.07 ng/dL (0.76-1.46); Glucose 132 mg/dL (74-106); Potassium 3.8 mmol/L (3.5-5.1); Sodium 143 mmol/L (136-145); TSH 2.66 uIU/mL (0.36-3.74); Total Protein 8.1 g/dL (6.4-8.2)
== END 2024-06-19 02:15 | disposition home or self-care (01) ==
PROVIDERS: Visit Provider Nurse Practitioner Family
DX: Z79.899 Other long term (current) drug therapy (principal); C34.11 Malignant neoplasm of upper lobe, right bronchus or lung
CPT/HCPCS: 36415; 80053; 83735; 84439; 84443; 85025

== ENCOUNTER 2024-07-10 02:29 | Outpatient (CLI) | payer MEDICARE, SELFPAY ==
[2024-07-10 09:48] LABS: Abs Immature Grans 0.04 10^3/uL (0.0-0.06); Absolute Basophil Count 0.09 10^3/uL (0.0-0.2); Absolute Eosinophil Count 0.36 10^3/uL (0.0-0.7); Absolute Lymphocyte Count 2.21 10^3/uL (1.2-3.4); Absolute Monocyte Count 0.75 10^3/uL (0.1-0.8); Basophils % 0.8 %; Eosinophils % 3.3 %; HCT 40.1 % (40.0-50.0); HGB 13.2 g/dL (13.5-17.5); Immature Grans % 0.4 %; Lymphocytes % 20.2 %; MCH 29.5 pg (27.0-33.0); MCHC 32.9 % (32.0-36.0); MCV 90 fL (80-95); MPV 9.6 fL (8.0-11.0); Monocytes % 6.9 %; Neutrophils % 68.4 %; Platelet Count 329 10^3/uL (130-400); RBC 4.48 10^6/uL (4.36-5.78); RDW 13.2 % (11.8-14.1); RDW-SD 43.7 fL; WBC 10.94 10^3/uL (4.4-10.8)
[2024-07-10 09:49] LABS: Absolute Neutrophil Count 7.48 10^3/uL (1.2-6.7)
[2024-07-10 10:14] LABS: ALT 19 U/L (16-63); AST 17 U/L (15-37); Albumin 3.3 g/dL (3.4-5.0); Alkaline Phosphatase 80 U/L (46-116); Anion Gap 8.7 mmol/L (3-11); BUN 15 mg/dL (7-18); Bilirubin, Total 0.43 mg/dL (0.2-1.0); CO2 31.3 mmol/L (21.0-32.0); Chloride 102 mmol/L (98-107); Estimated GFR 81.98 (mL/min/1.73m2); FREE T4 0.98 ng/dL (0.76-1.46); Glucose 140 mg/dL (74-106); Potassium 3.8 mmol/L (3.5-5.1); Sodium 142 mmol/L (136-145); TSH 2.05 uIU/mL (0.36-3.74); Total Protein 7.7 g/dL (6.4-8.2)
== END 2024-07-10 02:30 | disposition home or self-care (01) ==
PROVIDERS: Visit Provider Nurse Practitioner Family
DX: Z79.899 Other long term (current) drug therapy (principal); C34.11 Malignant neoplasm of upper lobe, right bronchus or lung
CPT/HCPCS: 36415; 80053; 83735; 84439; 84443; 85025

== ENCOUNTER 2024-07-31 03:17 | Outpatient (CLI) | payer MEDICARE, SELFPAY ==
[2024-07-31 10:08] LABS: Abs Immature Grans 0.06 10^3/uL (0.0-0.06); Absolute Monocyte Count 0.84 10^3/uL (0.1-0.8); Basophils % 0.8 %; Eosinophils % 2.8 %; HGB 13.9 g/dL (13.5-17.5); Immature Grans % 0.5 %; Lymphocytes % 18.4 %; MCH 29.2 pg (27.0-33.0); MCHC 31.6 % (32.0-36.0); MCV 92 fL (80-95); MPV 9.3 fL (8.0-11.0); Neutrophils % 70.5 %; Platelet Count 330 10^3/uL (130-400); RBC 4.76 10^6/uL (4.36-5.78); RDW 13.5 % (11.8-14.1); RDW-SD 46.1 fL; WBC 11.96 10^3/uL (4.4-10.8)
[2024-07-31 10:10] LABS: Absolute Eosinophil Count 0.33 10^3/uL (0.0-0.7); Absolute Neutrophil Count 8.43 10^3/uL (1.2-6.7)
[2024-07-31 10:35] LABS: ALT 23 U/L (16-63); AST 17 U/L (15-37); Albumin 3.5 g/dL (3.4-5.0); Alkaline Phosphatase 88 U/L (46-116); Anion Gap 5.8 mmol/L (3-11); BUN 18 mg/dL (7-18); Bilirubin, Total 0.31 mg/dL (0.2-1.0); CO2 33.2 mmol/L (21.0-32.0); Chloride 104 mmol/L (98-107); Estimated GFR 81.98 (mL/min/1.73m2); FREE T4 0.98 ng/dL (0.76-1.46); Glucose 120 mg/dL (74-106); Magnesium 2.2 mg/dL (1.8-2.4); Potassium 3.9 mmol/L (3.5-5.1); Sodium 143 mmol/L (136-145); TSH 2.68 uIU/mL (0.36-3.74); Total Protein 8.2 g/dL (6.4-8.2)
== END 2024-07-31 03:18 | disposition home or self-care (01) ==
PROVIDERS: Visit Provider Nurse Practitioner Family
DX: Z79.899 Other long term (current) drug therapy (principal); C34.11 Malignant neoplasm of upper lobe, right bronchus or lung
CPT/HCPCS: 36415; 80053; 83735; 84439; 84443; 85025

== ENCOUNTER 2024-08-21 11:39 | Outpatient (CLI) | payer MEDICARE, SELFPAY ==
[2024-08-21 09:14] LABS: Abs Immature Grans 0.05 10^3/uL (0.0-0.06); Absolute Basophil Count 0.11 10^3/uL (0.0-0.2); Absolute Eosinophil Count 0.65 10^3/uL (0.0-0.7); Absolute Lymphocyte Count 2.25 10^3/uL (1.2-3.4); Eosinophils % 5.9 %; HCT 43.4 % (40.0-50.0); HGB 13.9 g/dL (13.5-17.5); Immature Grans % 0.5 %; Lymphocytes % 20.3 %; MCH 28.9 pg (27.0-33.0); MCV 90 fL (80-95); MPV 9.5 fL (8.0-11.0); Monocytes % 7.2 %; Neutrophils % 65.1 %; Platelet Count 350 10^3/uL (130-400); RBC 4.81 10^6/uL (4.36-5.78); RDW 14.2 % (11.8-14.1); RDW-SD 46.9 fL; WBC 11.09 10^3/uL (4.4-10.8)
[2024-08-21 09:16] LABS: Absolute Neutrophil Count 7.22 10^3/uL (1.2-6.7)
[2024-08-21 09:37] LABS: ALT 22 U/L (16-63); AST 17 U/L (15-37); Albumin 3.4 g/dL (3.4-5.0); Alkaline Phosphatase 85 U/L (46-116); BUN 22 mg/dL (7-18); Bilirubin, Total 0.42 mg/dL (0.2-1.0); CREATININE 1.1 mg/dL (0.70-1.30); Calcium 9.3 mg/dL (8.5-10.1); Chloride 104 mmol/L (98-107); Estimated GFR 73.12 (mL/min/1.73m2); FREE T4 1.12 ng/dL (0.76-1.46); Glucose 148 mg/dL (74-106); Magnesium 2.1 mg/dL (1.8-2.4); Potassium 3.9 mmol/L (3.5-5.1); Sodium 142 mmol/L (136-145); TSH 3.54 uIU/mL (0.36-3.74)
== END 2024-08-21 11:40 | disposition home or self-care (01) ==
LOC: LBO 11:41
PROVIDERS: Visit Provider Nurse Practitioner Family
DX: Z79.899 Other long term (current) drug therapy (principal); C34.11 Malignant neoplasm of upper lobe, right bronchus or lung
CPT/HCPCS: 36415; 80053; 83735; 84439; 84443; 85025

== ENCOUNTER 2024-10-02 02:19 | Outpatient (RCR) | payer MEDICARE, SELFPAY ==
[2024-09-11] MEDS: Normal Saline Flush 10 ML SYR IVP (10:09)
[2024-09-11 10:48] LABS: Abs Immature Grans 0.07 10^3/uL (0.0-0.06); Absolute Basophil Count 0.12 10^3/uL (0.0-0.2); Absolute Eosinophil Count 0.49 10^3/uL (0.0-0.7); Absolute Lymphocyte Count 2.44 10^3/uL (1.2-3.4); Absolute Monocyte Count 0.78 10^3/uL (0.1-0.8); Absolute Neutrophil Count 8.16 10^3/uL (1.2-6.7); Eosinophils % 4.1 %; HCT 43.2 % (40.0-50.0); HGB 13.5 g/dL (13.5-17.5); Immature Grans % 0.6 %; Lymphocytes % 20.2 %; MCH 28.5 pg (27.0-33.0); MCHC 31.3 % (32.0-36.0); MCV 91 fL (80-95); MPV 10.1 fL (8.0-11.0); Monocytes % 6.5 %; Neutrophils % 67.6 %; Platelet Count 330 10^3/uL (130-400); RBC 4.74 10^6/uL (4.36-5.78); RDW 14.3 % (11.8-14.1); RDW-SD 47.8 fL; WBC 12.07 10^3/uL (4.4-10.8)
[2024-09-11 11:12] LABS: ALT 23 U/L (16-63); AST 20 U/L (15-37); Albumin 3.4 g/dL (3.4-5.0); Alkaline Phosphatase 90 U/L (46-116); Anion Gap 8.6 mmol/L (3-11); BUN 16 mg/dL (7-18); Bilirubin, Total 0.42 mg/dL (0.2-1.0); CO2 31.4 mmol/L (21.0-32.0); Chloride 103 mmol/L (98-107); Estimated GFR 81.47 (mL/min/1.73m2); Glucose 141 mg/dL (74-106); Potassium 3.8 mmol/L (3.5-5.1); Sodium 143 mmol/L (136-145); TSH 2.95 uIU/mL (0.36-3.74)
[2024-09-11 18:18] LABS: T4, Free 1.4 ng/dL (0.8-2.2)
[2024-10-02 10:36] LABS: Abs Immature Grans 0.06 10^3/uL (0.0-0.06); Absolute Eosinophil Count 0.31 10^3/uL (0.0-0.7); Absolute Lymphocyte Count 2.28 10^3/uL (1.2-3.4); Absolute Monocyte Count 0.92 10^3/uL (0.1-0.8); Eosinophils % 2.7 %; HCT 43.2 % (40.0-50.0); HGB 13.8 g/dL (13.5-17.5); Immature Grans % 0.5 %; Lymphocytes % 19.9 %; MCH 29.1 pg (27.0-33.0); MCHC 31.9 % (32.0-36.0); MCV 91 fL (80-95); MPV 9.5 fL (8.0-11.0); Neutrophils % 67.9 %; Platelet Count 356 10^3/uL (130-400); RBC 4.74 10^6/uL (4.36-5.78); RDW 14.8 % (11.8-14.1); RDW-SD 49.4 fL; WBC 11.47 10^3/uL (4.4-10.8)
[2024-10-02 10:40] LABS: Absolute Basophil Count 0.11 10^3/uL (0.0-0.2); Absolute Neutrophil Count 7.79 10^3/uL (1.2-6.7)
[2024-10-02] MEDS: Normal Saline Flush 10 ML SYR IVP (10:52)
[2024-10-02 11:17] LABS: ALT 22 U/L (16-63); AST 20 U/L (15-37); Albumin 3.4 g/dL (3.4-5.0); Alkaline Phosphatase 87 U/L (46-116); Anion Gap 8.6 mmol/L (3-11); BUN 18 mg/dL (7-18); Bilirubin, Total 0.5 mg/dL (0.2-1.0); CO2 31.4 mmol/L (21.0-32.0); Calcium 9.2 mg/dL (8.5-10.1); Chloride 103 mmol/L (98-107); Estimated GFR 81.47 (mL/min/1.73m2); Glucose 129 mg/dL (74-106); Magnesium 2.2 mg/dL; Potassium 3.9 mmol/L (3.5-5.1); Sodium 143 mmol/L (136-145); Total Protein 8.1 g/dL (6.4-8.2)
[2024-10-02 19:19] LABS: T4, Free 1.4 ng/dL (0.8-2.2)
== END 2024-10-09 23:59 | disposition home or self-care (01) ==
LOC: INF 02:19
PROVIDERS: Nurse Practitioner Family; Visit Provider Internal Medicine Medical Oncology
DX: Z79.899 Other long term (current) drug therapy (principal); C34.11 Malignant neoplasm of upper lobe, right bronchus or lung
CPT/HCPCS: 36591; 80053; 83735; 84439; 84443; 85025

== ENCOUNTER 2024-10-23 02:47 | Outpatient (RCR) | payer MEDICARE, SELFPAY ==
[2024-10-23] MEDS: Normal Saline Flush 10 ML SYR IVP (09:58)
[2024-10-23 09:59] LABS: Abs Immature Grans 0.06 10^3/uL (0.0-0.06); Absolute Basophil Count 0.09 10^3/uL (0.0-0.2); Absolute Eosinophil Count 0.28 10^3/uL (0.0-0.7); Absolute Lymphocyte Count 2.08 10^3/uL (1.2-3.4); Absolute Monocyte Count 0.79 10^3/uL (0.1-0.8); Absolute Neutrophil Count 8.18 10^3/uL (1.2-6.7); Basophils % 0.8 %; Eosinophils % 2.4 %; HCT 43.3 % (40.0-50.0); HGB 13.7 g/dL (13.5-17.5); Immature Grans % 0.5 %; Lymphocytes % 18.1 %; MCHC 31.6 % (32.0-36.0); MCV 92 fL (80-95); MPV 9.2 fL (8.0-11.0); Monocytes % 6.9 %; Neutrophils % 71.3 %; Platelet Count 344 10^3/uL (130-400); RBC 4.73 10^6/uL (4.36-5.78); RDW 14.6 % (11.8-14.1); WBC 11.47 10^3/uL (4.4-10.8)
[2024-10-23 10:25] LABS: ALT 22 U/L (16-63); AST 18 U/L (15-37); Albumin 3.4 g/dL (3.4-5.0); Alkaline Phosphatase 85 U/L (46-116); BUN 11 mg/dL (7-18); Bilirubin, Total 0.5 mg/dL (0.2-1.0); Chloride 101 mmol/L (98-107); Estimated GFR 81.47 (mL/min/1.73m2); FREE T4 1.04 ng/dL (0.76-1.46); Glucose 151 mg/dL (74-106); Magnesium 1.9 mg/dL (1.8-2.4); Sodium 141 mmol/L (136-145); TSH 3.61 uIU/mL (0.36-3.74)
== END 2024-11-08 23:59 | disposition home or self-care (01) ==
LOC: INF 02:47
PROVIDERS: Nurse Practitioner Family; Visit Provider Internal Medicine Medical Oncology
DX: C34.11 Malignant neoplasm of upper lobe, right bronchus or lung (principal); Z79.899 Other long term (current) drug therapy
CPT/HCPCS: 36591; 80053; 83735; 84439; 84443; 85025

== ENCOUNTER 2024-12-05 01:59 | Outpatient (RCR) | payer MEDICARE, SELFPAY ==
[2024-11-13 08:25] LABS: Abs Immature Grans 0.06 10^3/uL (0.0-0.06); Absolute Basophil Count 0.09 10^3/uL (0.0-0.2); Absolute Eosinophil Count 0.37 10^3/uL (0.0-0.7); Absolute Monocyte Count 0.95 10^3/uL (0.1-0.8); Basophils % 0.8 %; Eosinophils % 3.3 %; HCT 41.1 % (40.0-50.0); HGB 13.1 g/dL (13.5-17.5); Immature Grans % 0.5 %; Lymphocytes % 16.2 %; MCH 28.8 pg (27.0-33.0); MCHC 31.9 % (32.0-36.0); MCV 90 fL (80-95); MPV 9.3 fL (8.0-11.0); Monocytes % 8.5 %; Neutrophils % 70.7 %; Platelet Count 369 10^3/uL (130-400); RBC 4.55 10^6/uL (4.36-5.78); RDW 14.4 % (11.8-14.1); RDW-SD 47.5 fL; WBC 11.14 10^3/uL (4.4-10.8)
[2024-11-13] MEDS: Normal Saline Flush 10 ML SYR IVP (08:25)
[2024-11-13 08:26] LABS: Absolute Neutrophil Count 7.88 10^3/uL (1.2-6.7)
[2024-11-13 08:55] LABS: ALT 22 U/L (16-63); AST 21 U/L (15-37); Albumin 3.3 g/dL (3.4-5.0); Alkaline Phosphatase 86 U/L (46-116); Anion Gap 5.9 mmol/L (3-11); BUN 17 mg/dL (7-18); Bilirubin, Total 0.3 mg/dL (0.2-1.0); CO2 32.1 mmol/L (21.0-32.0); CREATININE 0.9 mg/dL (0.70-1.30); Calcium 8.9 mg/dL (8.5-10.1); Chloride 102 mmol/L (98-107); Estimated GFR 92.45 (mL/min/1.73m2); FREE T4 1.11 ng/dL (0.76-1.46); Glucose 195 mg/dL (74-106); Magnesium 2.1 mg/dL (1.8-2.4); Potassium 3.7 mmol/L (3.5-5.1); Sodium 140 mmol/L (136-145); Total Protein 7.7 g/dL (6.4-8.2)
[2024-12-05] MEDS: Normal Saline Flush 10 ML SYR IVP (10:23)
[2024-12-05 11:19] LABS: Absolute Basophil Count 0.09 10^3/uL (0.0-0.2); Absolute Eosinophil Count 0.23 10^3/uL (0.0-0.7); Absolute Lymphocyte Count 2.13 10^3/uL (1.2-3.4); Absolute Monocyte Count 0.82 10^3/uL (0.1-0.8); Absolute Neutrophil Count 5.28 10^3/uL (1.2-6.7); Eosinophils % 2.7 %; HGB 13.4 g/dL (13.5-17.5); Immature Grans % 1.2 %; Lymphocytes % 24.6 %; MCHC 32.7 % (32.0-36.0); MCV 92 fL (80-95); MPV 9.6 fL (8.0-11.0); Monocytes % 9.5 %; Platelet Count 345 10^3/uL (130-400); RBC 4.46 10^6/uL (4.36-5.78); RDW 16.1 % (11.8-14.1); RDW-SD 50.2 fL; WBC 8.65 10^3/uL (4.4-10.8)
[2024-12-05 11:50] LABS: ALT 38 U/L (16-63); AST 24 U/L (15-37); Albumin 3.5 g/dL (3.4-5.0); Alkaline Phosphatase 92 U/L (46-116); Anion Gap 7.4 mmol/L (3-11); BUN 16 mg/dL (7-18); Bilirubin, Total 0.3 mg/dL (0.2-1.0); CO2 30.6 mmol/L (21.0-32.0); CREATININE 0.9 mg/dL (0.70-1.30); Chloride 102 mmol/L (98-107); Estimated GFR 92.45 (mL/min/1.73m2); FREE T4 0.98 ng/dL (0.76-1.46); Glucose 161 mg/dL (74-106); Magnesium 1.9 mg/dL (1.8-2.4); Potassium 3.7 mmol/L (3.5-5.1); Sodium 140 mmol/L (136-145); TSH 2.23 uIU/mL (0.36-3.74); Total Protein 7.8 g/dL (6.4-8.2)
== END 2024-12-09 23:59 | disposition home or self-care (01) ==
LOC: INF 01:59
PROVIDERS: Nurse Practitioner Family; Visit Provider Internal Medicine Medical Oncology
DX: C34.11 Malignant neoplasm of upper lobe, right bronchus or lung (principal); Z79.899 Other long term (current) drug therapy
CPT/HCPCS: 36591; 80053; 83735; 84439; 84443; 85025

== ENCOUNTER 2024-12-25 00:36 | Outpatient (RCR) | payer MEDICARE, SELFPAY ==
[2024-12-25] MEDS: Normal Saline Flush 10 ML SYR IVP (10:31)
[2024-12-25 10:45] LABS: Abs Immature Grans 0.05 10^3/uL (0.0-0.06); Absolute Basophil Count 0.07 10^3/uL (0.0-0.2); Absolute Eosinophil Count 0.21 10^3/uL (0.0-0.7); Absolute Lymphocyte Count 2.18 10^3/uL (1.2-3.4); Absolute Monocyte Count 0.74 10^3/uL (0.1-0.8); Absolute Neutrophil Count 4.31 10^3/uL (1.2-6.7); Basophils % 0.9 %; Eosinophils % 2.8 %; HCT 39.7 % (40.0-50.0); HGB 13.4 g/dL (13.5-17.5); Immature Grans % 0.7 %; Lymphocytes % 28.8 %; MCH 30.7 pg (27.0-33.0); MCHC 33.8 % (32.0-36.0); MCV 91 fL (80-95); Monocytes % 9.8 %; Nucleated RBC 0.3 % (0.0-0.3); Platelet Count 303 10^3/uL (130-400); RBC 4.36 10^6/uL (4.36-5.78); RDW 17.1 % (11.8-14.1); RDW-SD 54.2 fL; WBC 7.56 10^3/uL (4.4-10.8)
[2024-12-25 11:22] LABS: Albumin 3.6 g/dL (3.4-5.0); Alkaline Phosphatase 92 U/L (46-116); BUN 19 mg/dL (7-18); Bilirubin, Total 0.3 mg/dL (0.2-1.0); CREATININE 1.1 mg/dL (0.70-1.30); Calcium 9.1 mg/dL (8.5-10.1); Estimated GFR 72.67 (mL/min/1.73m2); Glucose 155 mg/dL (74-106); Sodium 142 mmol/L (136-145); Total Protein 7.9 g/dL (6.4-8.2)
[2024-12-25 11:23] LABS: ALT 40 U/L (16-63); AST 21 U/L (15-37); Anion Gap 10.9 mmol/L (3-11); CO2 30.1 mmol/L (21.0-32.0); Chloride 101 mmol/L (98-107); FREE T4 0.98 ng/dL (0.76-1.46); Magnesium 1.7 mg/dL (1.8-2.4); Potassium 3.5 mmol/L (3.5-5.1); TSH 2.26 uIU/mL (0.36-3.74)
== END 2025-01-08 23:59 | disposition home or self-care (01) ==
LOC: INF 00:36
PROVIDERS: Nurse Practitioner Family; Visit Provider Internal Medicine Medical Oncology
DX: C34.11 Malignant neoplasm of upper lobe, right bronchus or lung (principal); Z79.899 Other long term (current) drug therapy
CPT/HCPCS: 36415; 80053; 96523; 83735; 84439; 84443; 85025

== ENCOUNTER 2025-02-05 02:43 | Outpatient (RCR) | payer MEDICARE, SELFPAY ==
[2025-01-15] MEDS: Normal Saline Flush 10 ML SYR IVP (10:25)
[2025-01-15 10:41] LABS: Abs Immature Grans 0.06 10^3/uL (0.0-0.06); HCT 36.1 % (40.0-50.0); HGB 12.2 g/dL (13.5-17.5); Immature Grans % 0.8 %; MCH 31.4 pg (27.0-33.0); MCHC 33.8 % (32.0-36.0); MCV 93 fL (80-95); MPV 9.1 fL (8.0-11.0); Platelet Count 263 10^3/uL (130-400); RBC 3.89 10^6/uL (4.36-5.78); RDW 19.4 % (11.8-14.1); RDW-SD 62.5 fL; WBC 7.67 10^3/uL (4.4-10.8)
[2025-01-15 11:12] LABS: ALT 42 U/L (16-63); AST 28 U/L (15-37); Albumin 3.5 g/dL (3.4-5.0); Alkaline Phosphatase 81 U/L (46-116); Anion Gap 8.4 mmol/L (3-11); BUN 16 mg/dL (7-18); Bilirubin, Total 0.3 mg/dL (0.2-1.0); CO2 32.6 mmol/L (21.0-32.0); Calcium 8.3 mg/dL (8.5-10.1); Chloride 102 mmol/L (98-107); Estimated GFR 92.45 (mL/min/1.73m2); Glucose 142 mg/dL (74-106); Magnesium 1.6 mg/dL (1.8-2.4); Sodium 143 mmol/L (136-145); TSH 1.99 uIU/mL (0.36-3.74); Total Protein 7.6 g/dL (6.4-8.2)
[2025-01-15 11:24] LABS: Potassium 2.9 mmol/L (3.5-5.1)
[2025-02-05] MEDS: Normal Saline Flush 10 ML SYR IVP (12:06)
[2025-02-05 12:21] LABS: Abs Immature Grans 0.08 10^3/uL (0.0-0.06); HCT 35.2 % (40.0-50.0); HGB 11.9 g/dL (13.5-17.5); Immature Grans % 1.1 %; MCH 32.8 pg (27.0-33.0); MCHC 33.8 % (32.0-36.0); MCV 97 fL (80-95); MPV 9.5 fL (8.0-11.0); Platelet Count 280 10^3/uL (130-400); RBC 3.63 10^6/uL (4.36-5.78); RDW 22.0 % (11.8-14.1); RDW-SD 76.9 fL; WBC 7.29 10^3/uL (4.4-10.8)
[2025-02-05 12:34] LABS: Anisocytosis 2+; Polychromasia Present
[2025-02-05 12:56] LABS: ALT 45 U/L (16-63); AST 30 U/L (15-37); Albumin 3.5 g/dL (3.4-5.0); Alkaline Phosphatase 81 U/L (46-116); Anion Gap 6.6 mmol/L (3-11); BUN 12 mg/dL (7-18); Bilirubin, Total 0.3 mg/dL (0.2-1.0); CO2 34.4 mmol/L (21.0-32.0); Calcium 9.1 mg/dL (8.5-10.1); Chloride 101 mmol/L (98-107); Estimated GFR 95.80 (mL/min/1.73m2); Glucose 136 mg/dL (74-106); Magnesium 1.8 mg/dL (1.8-2.4); Potassium 3.5 mmol/L (3.5-5.1); Sodium 142 mmol/L (136-145); TSH 2.56 uIU/mL (0.36-3.74); Total Protein 7.5 g/dL (6.4-8.2)
== END 2025-02-08 23:59 | disposition home or self-care (01) ==
LOC: INF 02:43
PROVIDERS: Visit Provider Internal Medicine Medical Oncology
DX: C34.11 Malignant neoplasm of upper lobe, right bronchus or lung (principal); Z79.899 Other long term (current) drug therapy; Z45.2 Encounter for adjustment and management of vascular access device
CPT/HCPCS: 36591; 80053; 83735; 84439; 84443; 85025

== ENCOUNTER 2025-02-26 03:47 | Outpatient (RCR) | payer MEDICARE, SELFPAY ==
[2025-02-26 11:06] LABS: Abs Immature Grans 0.07 10^3/uL (0.0-0.06); HCT 36.5 % (40.0-50.0); HGB 11.8 g/dL (13.5-17.5); Immature Grans % 0.7 %; MCH 33.1 pg (27.0-33.0); MCHC 32.3 % (32.0-36.0); MCV 102 fL (80-95); MPV 9.7 fL (8.0-11.0); Platelet Count 456 10^3/uL (130-400); RBC 3.57 10^6/uL (4.36-5.78); RDW 21.4 % (11.8-14.1); RDW-SD 79.7 fL; WBC 9.66 10^3/uL (4.4-10.8)
[2025-02-26] MEDS: Normal Saline Flush 10 ML SYR IVP (11:07)
[2025-02-26 11:47] LABS: ALT 54 U/L (16-63); AST 33 U/L (15-37); Albumin 3.4 g/dL (3.4-5.0); Alkaline Phosphatase 83 U/L (46-116); Anion Gap 10.2 mmol/L (3-11); BUN 12 mg/dL (7-18); Bilirubin, Total 0.5 mg/dL (0.2-1.0); CO2 30.8 mmol/L (21.0-32.0); Calcium 9.1 mg/dL (8.5-10.1); Chloride 101 mmol/L (98-107); Estimated GFR 81.47 (mL/min/1.73m2); Glucose 116 mg/dL (74-106); Magnesium 1.9 mg/dL (1.8-2.4); Potassium 3.4 mmol/L (3.5-5.1); Sodium 142 mmol/L (136-145); TSH 3.19 uIU/mL (0.36-3.74); Total Protein 7.9 g/dL (6.4-8.2)
== END 2025-03-11 23:59 | disposition home or self-care (01) ==
LOC: INF 03:47
PROVIDERS: Nurse Practitioner Family; Visit Provider Internal Medicine Medical Oncology
DX: C34.11 Malignant neoplasm of upper lobe, right bronchus or lung (principal); Z79.899 Other long term (current) drug therapy; Z45.2 Encounter for adjustment and management of vascular access device
CPT/HCPCS: 36591; 80053; 83735; 84439; 84443; 85025

== ENCOUNTER 2025-04-09 03:39 | Outpatient (RCR) | payer MEDICARE, SELFPAY ==
[2025-03-19 09:02] LABS: Abs Immature Grans 0.07 10^3/uL (0.0-0.06); HCT 33.5 % (40.0-50.0); HGB 11.1 g/dL (13.5-17.5); Immature Grans % 0.7 %; MCH 35.0 pg (27.0-33.0); MCHC 33.1 % (32.0-36.0); MCV 106 fL (80-95); MPV 9.5 fL (8.0-11.0); Platelet Count 445 10^3/uL (130-400); RBC 3.17 10^6/uL (4.36-5.78); RDW 17.2 % (11.8-14.1); RDW-SD 68.4 fL; WBC 10.05 10^3/uL (4.4-10.8)
[2025-03-19 09:55] LABS: ALT 42 U/L (16-63); AST 28 U/L (15-37); Albumin 3.2 g/dL (3.4-5.0); Alkaline Phosphatase 74 U/L (46-116); Anion Gap 9.0 mmol/L (3-11); BUN 18 mg/dL (7-18); Bilirubin, Total 0.2 mg/dL (0.2-1.0); CO2 30.0 mmol/L (21.0-32.0); Calcium 9.1 mg/dL (8.5-10.1); Chloride 101 mmol/L (98-107); Glucose 182 mg/dL (74-106); Magnesium 1.8 mg/dL (1.8-2.4); Potassium 3.1 mmol/L (3.5-5.1); Sodium 140 mmol/L (136-145); TSH 4.98 uIU/mL (0.36-3.74); Total Protein 7.9 g/dL (6.4-8.2)
[2025-03-19] MEDS: Normal Saline Flush 10 ML SYR IVP (11:08)
[2025-04-09] MEDS: Normal Saline Flush 10 ML SYR IVP (09:51)
[2025-04-09 10:24] LABS: Abs Immature Grans 0.06 10^3/uL (0.0-0.06); HCT 34.3 % (40.0-50.0); HGB 11.4 g/dL (13.5-17.5); Immature Grans % 0.7 %; MCH 36.3 pg (27.0-33.0); MCHC 33.2 % (32.0-36.0); MCV 109 fL (80-95); MPV 9.6 fL (8.0-11.0); Platelet Count 512 10^3/uL (130-400); RBC 3.14 10^6/uL (4.36-5.78); RDW 14.9 % (11.8-14.1); RDW-SD 60.6 fL; WBC 9.14 10^3/uL (4.4-10.8)
== END 2025-04-10 23:59 | disposition home or self-care (01) ==
LOC: INF 03:39
PROVIDERS: Nurse Practitioner Family; Visit Provider Internal Medicine Medical Oncology
DX: C34.11 Malignant neoplasm of upper lobe, right bronchus or lung (principal); Z79.899 Other long term (current) drug therapy; Z45.2 Encounter for adjustment and management of vascular access device
CPT/HCPCS: 36591; 80053; 83735; 84439; 84443; 85025

== ENCOUNTER 2025-05-07 00:25 | Outpatient (RCR) | payer MEDICARE, SELFPAY ==
[2025-04-17 10:40] LABS: Abs Immature Grans 0.06 10^3/uL (0.0-0.06); HCT 36.4 % (40.0-50.0); HGB 11.9 g/dL (13.5-17.5); Immature Grans % 0.6 %; MCH 35.4 pg (27.0-33.0); MCHC 32.7 % (32.0-36.0); MCV 108 fL (80-95); MPV 9.7 fL (8.0-11.0); Platelet Count 383 10^3/uL (130-400); RBC 3.36 10^6/uL (4.36-5.78); RDW 13.9 % (11.8-14.1); RDW-SD 55.4 fL; WBC 10.13 10^3/uL (4.4-10.8)
[2025-04-17 11:10] LABS: Macrocytosis 1+
[2025-04-17] MEDS: Normal Saline Flush 10 ML SYR IVP (11:10)
[2025-04-17 11:26] LABS: ALT 42 U/L (16-63); AST 32 U/L (15-37); Albumin 3.4 g/dL (3.4-5.0); Alkaline Phosphatase 98 U/L (46-116); Anion Gap 8.5 mmol/L (3-11); BUN 20 mg/dL (7-18); Bilirubin, Total 0.4 mg/dL (0.2-1.0); CO2 32.5 mmol/L (21.0-32.0); Calcium 9.1 mg/dL (8.5-10.1); Chloride 100 mmol/L (98-107); Glucose 126 mg/dL (74-106); Magnesium 2.0 mg/dL (1.8-2.4); Potassium 3.3 mmol/L (3.5-5.1); Sodium 141 mmol/L (136-145); TSH 5.16 uIU/mL (0.36-3.74); Total Protein 8.5 g/dL (6.4-8.2)
[2025-04-24 12:14] LABS: Abs Immature Grans 0.06 10^3/uL (0.0-0.06); HCT 33.8 % (40.0-50.0); HGB 11.2 g/dL (13.5-17.5); Immature Grans % 0.5 %; MCH 35.1 pg (27.0-33.0); MCHC 33.1 % (32.0-36.0); MCV 106 fL (80-95); MPV 10.0 fL (8.0-11.0); Platelet Count 358 10^3/uL (130-400); RBC 3.19 10^6/uL (4.36-5.78); RDW 13.6 % (11.8-14.1); RDW-SD 52.5 fL; WBC 11.14 10^3/uL (4.4-10.8)
[2025-04-24] MEDS: Normal Saline Flush 10 ML SYR IVP (12:27)
[2025-04-24 12:53] LABS: ALT 32 U/L (16-63); AST 25 U/L (15-37); Albumin 3.2 g/dL (3.4-5.0); Alkaline Phosphatase 87 U/L (46-116); Anion Gap 8.4 mmol/L (3-11); BUN 19 mg/dL (7-18); Bilirubin, Total 0.2 mg/dL (0.2-1.0); CO2 32.6 mmol/L (21.0-32.0); Calcium 9.1 mg/dL (8.5-10.1); Chloride 101 mmol/L (98-107); Glucose 99 mg/dL (74-106); Magnesium 1.9 mg/dL (1.8-2.4); Potassium 3.1 mmol/L (3.5-5.1); Sodium 142 mmol/L (136-145); TSH 3.77 uIU/mL (0.36-3.74); Total Protein 8.1 g/dL (6.4-8.2)
[2025-04-24 12:58] LABS: Anisocytosis 1+
[2025-04-24 12:59] LABS: Howell-Jolly Bodies 1+; Macrocytosis 2+
[2025-05-07] MEDS: Normal Saline Flush 10 ML SYR IVP (09:55)
[2025-05-07 10:07] LABS: Abs Immature Grans 0.06 10^3/uL (0.0-0.06); HCT 37.1 % (40.0-50.0); HGB 12.1 g/dL (13.5-17.5); Immature Grans % 0.6 %; MCH 34.1 pg (27.0-33.0); MCHC 32.6 % (32.0-36.0); MCV 105 fL (80-95); MPV 9.4 fL (8.0-11.0); Platelet Count 377 10^3/uL (130-400); RBC 3.55 10^6/uL (4.36-5.78); RDW 13.1 % (11.8-14.1); RDW-SD 50.1 fL; WBC 10.71 10^3/uL (4.4-10.8)
[2025-05-07 10:33] LABS: ALT 31 U/L (16-63); AST 25 U/L (15-37); Albumin 3.1 g/dL (3.4-5.0); Alkaline Phosphatase 97 U/L (46-116); Anion Gap 8.7 mmol/L (3-11); BUN 16 mg/dL (7-18); Bilirubin, Total 0.3 mg/dL (0.2-1.0); CO2 33.3 mmol/L (21.0-32.0); Calcium 8.8 mg/dL (8.5-10.1); Chloride 98 mmol/L (98-107); Glucose 201 mg/dL (74-106); Magnesium 1.9 mg/dL (1.8-2.4); Potassium 3.0 mmol/L (3.5-5.1); Sodium 140 mmol/L (136-145); TSH 2.57 uIU/mL (0.36-3.74); Total Protein 8.2 g/dL (6.4-8.2)
== END 2025-05-11 23:59 | disposition home or self-care (01) ==
LOC: INF 00:25
PROVIDERS: Nurse Practitioner Family; Visit Provider Internal Medicine Medical Oncology
DX: C34.11 Malignant neoplasm of upper lobe, right bronchus or lung (principal); Z79.899 Other long term (current) drug therapy; Z45.2 Encounter for adjustment and management of vascular access device
CPT/HCPCS: 36591; 80053; 83735; 84439; 84443; 85025

== ENCOUNTER 2025-06-05 01:56 | Outpatient (RCR) | payer MEDICARE, SELFPAY ==
[2025-05-14] MEDS: Normal Saline Flush 10 ML SYR IVP (10:08)
[2025-05-14 10:38] LABS: Abs Immature Grans 0.06 10^3/uL (0.0-0.06); HCT 36.7 % (40.0-50.0); HGB 11.8 g/dL (13.5-17.5); Immature Grans % 0.7 %; MCH 33.3 pg (27.0-33.0); MCHC 32.2 % (32.0-36.0); MCV 104 fL (80-95); MPV 9.9 fL (8.0-11.0); Platelet Count 354 10^3/uL (130-400); RBC 3.54 10^6/uL (4.36-5.78); RDW 13.2 % (11.8-14.1); RDW-SD 50.4 fL; WBC 9.18 10^3/uL (4.4-10.8)
[2025-05-14 11:32] LABS: ALT 30 U/L (16-63); AST 20 U/L (15-37); Albumin 3.0 g/dL (3.4-5.0); Alkaline Phosphatase 87 U/L (46-116); Anion Gap 9.6 mmol/L (3-11); BUN 13 mg/dL (7-18); Bilirubin, Total 0.3 mg/dL (0.2-1.0); CO2 31.4 mmol/L (21.0-32.0); Calcium 9.0 mg/dL (8.5-10.1); Chloride 100 mmol/L (98-107); Estimated GFR 81.47 (mL/min/1.73m2); Glucose 196 mg/dL (74-106); Magnesium 1.8 mg/dL (1.8-2.4); Potassium 3.2 mmol/L (3.5-5.1); Sodium 141 mmol/L (136-145); TSH 3.41 uIU/mL (0.36-3.74); Total Protein 8.1 g/dL (6.4-8.2)
[2025-05-29 10:30] LABS: Abs Immature Grans 0.04 10^3/uL (0.0-0.06); HCT 40.0 % (40.0-50.0); HGB 13.1 g/dL (13.5-17.5); Immature Grans % 0.5 %; MCH 32.8 pg (27.0-33.0); MCHC 32.8 % (32.0-36.0); MCV 100 fL (80-95); MPV 9.5 fL (8.0-11.0); Platelet Count 366 10^3/uL (130-400); RBC 3.99 10^6/uL (4.36-5.78); RDW 13.8 % (11.8-14.1); RDW-SD 50.6 fL; WBC 7.91 10^3/uL (4.4-10.8)
[2025-05-29] MEDS: Normal Saline Flush 10 ML SYR IVP (10:30)
[2025-05-29 10:44] LABS: Magnesium 1.8 mg/dL (1.6-2.6)
[2025-05-29 10:46] LABS: ALT 22 U/L (10-49); AST 24 U/L (<34); Albumin 4.4 g/dL (3.4-5.0); Alkaline Phosphatase 82 U/L (46-116); Anion Gap 8.5 mmol/L (3-11); BUN 18 mg/dL (9-23); Bilirubin, Total 0.40 mg/dL (0.2-1.2); CO2 33.3 mmol/L (20.0-31.0); Calcium 8.9 mg/dL (8.3-10.6); Chloride 99 mmol/L (98-107); Glucose 176 mg/dL (74-106); Potassium 3.1 mmol/L (3.5-5.1); Sodium 141 mmol/L (136-145); Total Protein 7.8 g/dL (5.7-8.2)
[2025-05-29 10:50] LABS: TSH 3.08 uIU/mL (0.55-4.78)
[2025-06-05] MEDS: Normal Saline Flush 10 ML SYR IVP (10:04)
[2025-06-05 10:25] LABS: Abs Immature Grans 0.06 10^3/uL (0.0-0.06); HCT 40.7 % (40.0-50.0); HGB 13.3 g/dL (13.5-17.5); Immature Grans % 0.6 %; MCH 32.3 pg (27.0-33.0); MCHC 32.7 % (32.0-36.0); MCV 99 fL (80-95); MPV 10.7 fL (8.0-11.0); Platelet Count 335 10^3/uL (130-400); RBC 4.12 10^6/uL (4.36-5.78); RDW 13.5 % (11.8-14.1); RDW-SD 48.9 fL; WBC 9.72 10^3/uL (4.4-10.8)
[2025-06-05 10:43] LABS: Magnesium 1.5 mg/dL (1.6-2.6)
[2025-06-05 10:45] LABS: ALT 25 U/L (10-49); AST 25 U/L (<34); Albumin 4.5 g/dL (3.4-5.0); Alkaline Phosphatase 78 U/L (46-116); Anion Gap 11.9 mmol/L (3-11); BUN 27 mg/dL (9-23); Bilirubin, Total 0.30 mg/dL (0.2-1.2); CO2 33.1 mmol/L (20.0-31.0); Calcium 9.1 mg/dL (8.3-10.6); Chloride 95 mmol/L (98-107); Glucose 226 mg/dL (74-106); Potassium 3.2 mmol/L (3.5-5.1); Sodium 140 mmol/L (136-145); Total Protein 8.0 g/dL (5.7-8.2)
[2025-06-05 10:48] LABS: TSH 3.40 uIU/mL (0.55-4.78)
== END 2025-06-10 23:59 | disposition home or self-care (01) ==
LOC: INF 01:56
PROVIDERS: Visit Provider Internal Medicine Medical Oncology
DX: C34.11 Malignant neoplasm of upper lobe, right bronchus or lung (principal); Z79.899 Other long term (current) drug therapy; Z45.2 Encounter for adjustment and management of vascular access device
CPT/HCPCS: 36591; 80053; 83735; 84439; 84443; 85025

== ENCOUNTER 2025-07-10 00:06 | Outpatient (RCR) | payer MEDICARE, SELFPAY ==
[2025-06-19 09:13] LABS: Abs Immature Grans 0.05 10^3/uL (0.0-0.06); HCT 39.9 % (40.0-50.0); HGB 12.9 g/dL (13.5-17.5); Immature Grans % 0.6 %; MCH 31.7 pg (27.0-33.0); MCHC 32.3 % (32.0-36.0); MCV 98 fL (80-95); MPV 10.5 fL (8.0-11.0); Platelet Count 336 10^3/uL (130-400); RBC 4.07 10^6/uL (4.36-5.78); RDW 13.8 % (11.8-14.1); RDW-SD 49.2 fL; WBC 8.45 10^3/uL (4.4-10.8)
[2025-06-19 09:33] LABS: Magnesium 1.6 mg/dL (1.6-2.6)
[2025-06-19 09:35] LABS: ALT 31 U/L (10-49); AST 26 U/L (<34); Albumin 4.3 g/dL (3.2-5.0); Alkaline Phosphatase 76 U/L (46-116); Anion Gap 7.8 mmol/L (3-11); BUN 21 mg/dL (9-23); Bilirubin, Total 0.4 mg/dL (0.2-1.2); CO2 35.9 mmol/L (20.0-31.0); Calcium 8.8 mg/dL (8.3-10.6); Chloride 97 mmol/L (98-107); Glucose 115 mg/dL (74-106); Potassium 3.1 mmol/L (3.5-5.1); Sodium 141 mmol/L (136-145); Total Protein 7.5 g/dL (5.7-8.2)
[2025-06-19 09:37] LABS: TSH 3.41 uIU/mL (0.55-4.78)
[2025-06-19] MEDS: Normal Saline Flush 10 ML SYR IVP (11:37)
[2025-06-26 08:59] LABS: Abs Immature Grans 0.05 10^3/uL (0.0-0.06); HCT 39.3 % (40.0-50.0); HGB 12.9 g/dL (13.5-17.5); Immature Grans % 0.7 %; MCH 32.0 pg (27.0-33.0); MCHC 32.8 % (32.0-36.0); MCV 98 fL (80-95); MPV 10.6 fL (8.0-11.0); Platelet Count 266 10^3/uL (130-400); RBC 4.03 10^6/uL (4.36-5.78); RDW 13.8 % (11.8-14.1); RDW-SD 49.1 fL; WBC 7.67 10^3/uL (4.4-10.8)
[2025-06-26 09:23] LABS: Magnesium 1.3 mg/dL (1.6-2.6)
[2025-06-26 09:24] LABS: TSH 2.85 uIU/mL (0.55-4.78)
[2025-06-26 09:33] LABS: ALT 22 U/L (10-49); AST 23 U/L (<34); Albumin 4.1 g/dL (3.2-5.0); Alkaline Phosphatase 71 U/L (46-116); Anion Gap 10.7 mmol/L (3-11); BUN 21 mg/dL (9-23); Bilirubin, Total 0.4 mg/dL (0.2-1.2); CO2 33.9 mmol/L (20.0-31.0); Calcium 8.7 mg/dL (8.3-10.6); Chloride 95 mmol/L (98-107); Glucose 211 mg/dL (74-106); Potassium 2.6 mmol/L (3.5-5.1); Sodium 140 mmol/L (136-145); Total Protein 7.1 g/dL (5.7-8.2)
[2025-06-26] MEDS: Normal Saline Flush 10 ML SYR IVP (09:41)
[2025-07-10 09:38] LABS: Abs Immature Grans 0.04 10^3/uL (0.0-0.06); HCT 38.2 % (40.0-50.0); HGB 12.3 g/dL (13.5-17.5); Immature Grans % 0.5 %; MCH 30.7 pg (27.0-33.0); MCHC 32.2 % (32.0-36.0); MCV 95 fL (80-95); MPV 10.1 fL (8.0-11.0); Platelet Count 313 10^3/uL (130-400); RBC 4.01 10^6/uL (4.36-5.78); RDW 14.6 % (11.8-14.1); RDW-SD 50.4 fL; WBC 7.39 10^3/uL (4.4-10.8)
[2025-07-10 10:26] LABS: ALT 17 U/L (10-49); AST 22 U/L (<34); Albumin 4.2 g/dL (3.2-5.0); Alkaline Phosphatase 71 U/L (46-116); Anion Gap 8.9 mmol/L (3-11); BUN 17 mg/dL (9-23); Bilirubin, Total 0.4 mg/dL (0.2-1.2); CO2 33.0 mmol/L (20.0-31.0); Calcium 8.8 mg/dL (8.3-10.6); Chloride 99 mmol/L (98-107); Glucose 190 mg/dL (74-106); Magnesium 1.4 mg/dL (1.6-2.6); Potassium 2.9 mmol/L (3.5-5.1); Sodium 141 mmol/L (136-145); TSH 2.82 uIU/mL (0.55-4.78); Total Protein 7.2 g/dL (5.7-8.2)
[2025-07-10] MEDS: Normal Saline Flush 10 ML SYR IVP (15:02)
== END 2025-07-11 23:59 | disposition home or self-care (01) ==
LOC: INF 00:06
PROVIDERS: Visit Provider Internal Medicine Medical Oncology
DX: C34.11 Malignant neoplasm of upper lobe, right bronchus or lung (principal); Z79.899 Other long term (current) drug therapy
CPT/HCPCS: 36591; 80053; 83735; 84439; 84443; 85025